=== PATIENT | male | born 1990 | race American Indian/Alaskan Native ===

== ENCOUNTER 2018-07-12 08:57 | Emergency (ER) | payer MEDICAID, OTHER ==
[2018-07-12 09:14] VITALS: RESP 18; O2SAT 98
--- NOTE | 2018-07-12 09:38 | ED PDOC ---
Arrival/HPI <Richie Santos - Last Filed: 07/12/18 10:47> - General Historian: Patient, Family (mom) EM Caveat: Other (possible cognitive impairements) - History of Present Illness Narrative History of Present Illness (Text): 07/12/18 09:33 27M with a past medical history of learning disabilities, ventricular septal defect and chondroplasia platybasis presents to the Emergency department with a two day history of non radiating Right shoulder pain and neck stiffness. Pt was found by his mom yelling and moaning on his bedroom floor complaining of shoulder pain, prompting her to call the ambulance. Pt took two tylenol, did not help. Pt believes he slept "wrong" on his side. As per mother, this is his baseline mental status, affect and mood ROS Pos+ shoulder pain, neck stiffness Neg- chest pain, shortness of breath, fevers, chills, nausea, vomiting, abdominal pain, falls, trauma, 07/12/18 09:47 07/12/18 09:57 Time/Duration: < week Symptom Onset: Sudden Quality: Aching Context: Home <Hernán Moore - Last Filed: 07/12/18 11:08> - General Chief Complaint: Upper Extremity Problem/Injury Time Seen by Provider: 07/12/18 08:58 Past Medical History - Provider Review Nursing Documentation Reviewed: Yes - Infectious Disease Hx of Infectious Diseases: None - Cardiac Other/Comment: vsd - Psychiatric Hx Substance Use: No - Anesthesia Hx Anesthesia: No <Hernán Moore - Last Filed: 07/12/18 11:08> Family/Social History - Physician Review Nursing Documentation Reviewed: Yes Family/Social History: Unknown Family HX Smoking Status: Unknown If Ever Smoked Hx Alcohol Use: No Hx Substance Use: No <Hernán Moore - Last Filed: 07/12/18 11:08> Allergies/Home Meds <Richie Santos - Last Filed: 07/12/18 10:47> <Hernán Moore - Last Filed: 07/12/18 11:08> Allergies/Adverse Reactions: Allergies No Known Allergies Allergy (Verified 07/12/18 09:12) Review of Systems - Physician Review All systems were reviewed & negative as marked: Yes - Review of Systems Constitutional: absent: Fevers Eyes: absent: Vision Changes, Photophobia Respiratory: absent: SOB Cardiovascular: absent: Chest Pain, Palpitations Gastrointestinal: absent: Abdominal Pain Musculoskeletal: Arthralgias (R shoulder), Neck Pain, Myalgias Skin: absent: Rash Neurological: absent: Headache <Hernán Moore - Last Filed: 07/12/18 11:08> Physical Exam Vital Signs Temp Pulse Resp BP Pulse Ox 07/12/18 09:10 98.9 F 80 18 115/65 98 07/12/18 09:07 98.9 F 80 18 115/65 98 <Richie Santos - Last Filed: 07/12/18 10:47> - Physical Exam Narrative Physical Exam (Text): 07/12/18 09:40 Full ROM of Right shoulder in Flexion, extension, abduction, internal and exte rnal rotation Limited passive and active ROM of R shoulder in adduction Negative Hawkin's, Neer's, Empty Can, Push-off, Apley's, Speed's, 07/12/18 09:43 Limited Cervical Spine ROM in flexion, extension, bilateral sidebending and rotation Vital Signs Reviewed: Yes Vital Signs Temp Pulse Resp BP Pulse Ox 07/12/18 09:10 98.9 F 80 18 115/65 98 07/12/18 09:07 98.9 F 80 18 115/65 98 Temperature: Afebrile Blood Pressure: Normal Pulse: Regular Respiratory Rate: Normal Appearance: Positive for: Well-Appearing, Non-Toxic Pain Distress: Moderate Mental Status: Positive for: Alert and Oriented X 3 - Systems Exam Head: Present: Atraumatic, Normocephalic, Other (prognathism) Pupils: Present: PERRL Extroacular Muscles: Present: EOMI. No: Gaze Palsy Conjunctiva: Present: Normal Mouth: Present: Moist Mucous Membranes. No: Drooling Pharnyx: No: ERYTHEMA Cardiovascular: Present: Regular Rate and Rhythm, Murmurs (holosystolic), Normal S1, S2 Abdomen: No: Tenderness Neurological: Present: CN II-XII Intact Skin: Present: Warm, Dry Psychiatric: Present: Agitated (evident mental disability) <Hernán Moore - Last Filed: 07/12/18 11:08> Medical Decision Making ED Course and Treatment: 07/12/18 09:56 Patient Seen with Resident: In agreement with resident note which contains more details about the patient. Patient seen and evaluated with resident. Came up with plan and treatment keila walsh. Impression: 27 year old male who presents to the emergency department complaining of right shoulder pain and neck stiffness. 07/12/18 10:03 seen and examined with the resident. Our history and physical exam reveals a mentally challenged gentleman who presents from home accompanied by his mother. Patient has a new mattress approximately 3 weeks ago. He reports that he slept funny and now has right shoulder and trapezius pain. There is some tenderness and spasm in his right trapezius. 07/12/18 10:47 symptoms have improved post treatment. X-rays are unrevealing. Discharge home accompanied by mother to follow-up with PMD. Follow up in ER as needed. - RAD Interpretation Radiology Orders: 07/12/18 09:27 CERVICAL SPINE AP & LATERAL [RAD] Stat SHOULDER RIGHT [RAD] Stat 07/12/18 09:44 CERVICAL SPINE >18YR W/OBLIQUE [RAD] Stat - Medication Orders Current Medication Orders: Discontinued Medications Cyclobenzaprine HCl (Flexeril) 10 mg PO STAT STA Stop: 07/12/18 09:28 Last Admin: 07/12/18 09:41 Dose: 10 mg Ketorolac Tromethamine (Toradol) 30 mg IM STAT STA Stop: 07/12/18 09:28 Last Admin: 07/12/18 09:44 Dose: 30 mg MAR Pain Assessment Document 07/12/18 09:44 KV (Rec: 07/12/18 09:45 KV [id number]) Pain Reassessment Is this a pain reassessment? No Sleep Is patient sleeping during reassessment? No Presence of Pain Presence of Pain Yes Pain Scale Used Protocol: PSCALES Pain Scale Used Numeric Location Left, Right or Bilateral Right Upper or Lower Upper Pain Location Body Site Arm Description Description Constant Intensity of Pain at present 4 IM Administration Charges Document 07/12/18 09:44 KV (Rec: 07/12/18 09:45 KV [id number]) Injection Site MAR Injection Site Left Gluteus Medius Charges for Administration # of IM Administrations 1 <Richie Santos - Last Filed: 07/12/18 10:47> ED Course and Treatment: 07/12/18 09:53 R misti X ray C/s complete X ray series Flexeril 10mg stat PO Toradol 30mg IM stat - RAD Interpretation Radiology Orders: 07/12/18 09:27 CERVICAL SPINE AP & LATERAL [RAD] Stat SHOULDER RIGHT [RAD] Stat - Medication Orders Current Medication Orders: Ketorolac Tromethamine (Toradol) 30 mg IM STAT STA Stop: 07/12/18 09:28 Discontinued Medications Cyclobenzaprine HCl (Flexeril) 10 mg PO STAT STA Stop: 07/12/18 09:28 <Hernán Moore - Last Filed: 07/12/18 11:08> - Scribe Statement The provider has reviewed the documentation as recorded by the Giancarlo Wellington Provider Scribe Attestation: All medical record entries made by the Scribe were at my direction and personally dictated by me. I have reviewed the chart and agree that the record accurately reflects my personal performance of the history, physical exam, [facility] decision making, and the department course for this patient. I have also personally directed, reviewed, and agree with the discharge instructions and disposition. <Richie Santos - Last Filed: 07/12/18 10:47> Disposition/Present on Arrival - Present on Arrival Any Indicators Present on Arrival: No History of DVT/PE: No History of Uncontrolled Diabetes: No Urinary Catheter: No History of Decub. Ulcer: No - Disposition Have Diagnosis and Disposition been Completed?: Yes Disposition Time: 10:47 Patient Plan: Discharge <Richie Santos - Last Filed: 07/12/18 10:47> - Present on Arrival Any Indicators Present on Arrival: No History of DVT/PE: No History of Uncontrolled Diabetes: No Urinary Catheter: No History of Decub. Ulcer: No History Surgical Site Infection Following: None <Hernán Moore - Last Filed: 07/12/18 11:08> - Disposition Diagnosis: Cervical strain Discharge Instructions (ExitCare): Cervical Muscle Strain (DC) Additional Instructions: rest and moist heat. Follow-up with PMD. Prescriptions: Naproxen [Naprosyn] 500 mg PO BID #14 tab Referrals: [facility] at [facility] [Outside] - Follow up with primary [facility] [Outside] - Follow up with primary eTss Saleh MD [Medical Doctor] - Follow up with primary Forms: [employer] (Lithuanian)
[2018-07-12 11:32] VITALS: BP 110/57; PULSE 83; TEMP 98.7
--- NOTE | 2018-07-12 13:23 | RAD ---
Date of service: 07/12/2018 PROCEDURE: Cervical Spine Radiographs. HISTORY: Pain. COMPARISON: None available. FINDINGS: BONES: Alignment maintained. No fracture. Dens Intact. DISC SPACES: Normal. SOFT TISSUES: Normal. No prevertebral soft tissue swelling. OTHER FINDINGS: None. IMPRESSION: Normal cervical spine radiographs
--- NOTE | 2018-07-12 13:27 | RAD ---
Date of service: 07/12/2018 PROCEDURE: Radiographs of the Right Shoulder HISTORY: right shoulder pain COMPARISON: No prior. FINDINGS: BONES: Normal. No fracture. JOINTS: Normal. Glenohumeral and acromioclavicular joints preserved. No osteoarthritis. SOFT TISSUES: Normal. OTHER FINDINGS: None. IMPRESSION: Normal radiographs of the right shoulder.
== END 2018-07-12 11:32 | disposition home or self-care (01) ==
LOC: ED 08:57
DX: S16.1XXA Strain of muscle, fascia and tendon at neck level, initial encounter (principal); X58.XXXA Exposure to other specified factors, initial encounter; Q21.0 Ventricular septal defect
CPT/HCPCS: 72050; 73030; 96372; 99283; J1885